=== PATIENT | male | born 1970 | race Caucasian/White ===

== ENCOUNTER 2018-06-08 04:38 | Emergency (ER) | payer SELFPAY ==
[~2018-06-08] VITALS: Ht 180.3 cm; Wt 104.3 kg
--- NOTE | 2018-06-08 04:43 | NUR ---
Note undone in EDM - 06/08/18 at 0517 by DORON BIBSELF C/O NONRADIATING MID ABD PAIN X 1 YR, WORSE TONIGHT WITH NV. Pt came to emergency dept. complaining of abd pain x 1 yr, that got worse tonight. +nausea, +vomitting, -diarrhea. Pt states he has a Hx of gallstones. Pt AAXO4. Respirations even and unlabored. Pt put on the monitor and pulse ox. Pending eval from ABHINAV GRIMALDO.
--- NOTE | 2018-06-08 04:43 | NUR ---
Pt came to emergency dept. complaining of abd pain x 1 yr, that got worse tonight. +nausea, +vomitting, -diarrhea. Pt states he has a Hx of gallstones. Pt AAXO4. Respirations even and unlabored. Pt put on the monitor and pulse ox. Pending eval from ER .
[2018-06-08] MEDS ORDERED: METOCLOPRAMIDE HCL 10 MG/2 ML VIAL ONE (04:47)
[2018-06-08] MEDS ORDERED: ONDANSETRON HCL/PF 4 MG/2 ML VIAL ONE (04:47)
[2018-06-08] MEDS ORDERED: KETOROLAC TROMETHAMINE INJ 30 MG/ML VIAL ONE (04:47)
[2018-06-08] MEDS ORDERED: PANTOPRAZOLE 40 MG VIAL ONE (04:47)
[2018-06-08] MEDS ORDERED: PANTOPRAZOLE 40 MG VIAL IV ONE (05:00)
[2018-06-08] MEDS ORDERED: ONDANSETRON HCL/PF 4 MG/2 ML VIAL IVP ONE (05:00)
[2018-06-08] MEDS ORDERED: METOCLOPRAMIDE HCL 10 MG/2 ML VIAL IV ONE (05:00)
[2018-06-08] MEDS ORDERED: KETOROLAC TROMETHAMINE INJ 30 MG/ML VIAL IV ONE (05:00)
[2018-06-08 05:03] LABS: BASOPHILS # (AUTO) 0.1 /CMM (0.0-0.2); BASOPHILS % (AUTO) 0.8 % (0.0-2.0); EOSINOPHILS % (AUTO) 1.5 % (0.0-6.0); HEMATOCRIT 47 % (39-51); HEMOGLOBIN 15.7 g/dL (13.5-17.5); LYMPHOCYTES # (AUTO) 2.1 /CMM (0.8-4.8); LYMPHOCYTES % (AUTO) 23.7 % (20.0-44.0); MEAN CORPUSCULAR HGB CONC 34 g/dl (31.0-36.0); MEAN CORPUSCULAR VOLUME 85 fL (80-96); MONOCYTES # (AUTO) 0.9 /CMM (0.1-1.30); MONOCYTES % (AUTO) 10.2 % (2.0-12.0); NEUTROPHILS # (AUTO) 5.6 /CMM (1.8-8.9); NEUTROPHILS % (AUTO) 63.8 % (43.0-81.0); PLATELET COUNT (AUTO) 294 /CMM (150-450); RED BLOOD CELL COUNT(AUTO) 5.47 MIL/uL (4.5-6.0); WHITE BLOOD COUNT (AUTO) 8.7 K/uL (4.3-11.0)
--- NOTE | 2018-06-08 05:08 | NUR ---
PT TAKEN TO CT.
[2018-06-08 05:13] LABS: CALCIUM, SERUM 9.1 mg/dL (8.5-10.1); POTASSIUM 4.1 mmol/L (3.5-5.1)
[2018-06-08 05:18] LABS: ALBUMIN 3.7 g/dL (3.4-5.0); BILIRUBIN,DIRECT 0.1 mg/dL (0.0-0.2); BILIRUBIN,TOTAL 0.3 mg/dL (0.2-1.0); TOTAL PROTEIN, SERUM 7.6 g/dL (6.4-8.2)
--- NOTE | 2018-06-08 05:24 | NUR ---
Pt returned from CT.
--- NOTE | 2018-06-08 05:48 | NUR ---
Patient is resting comfortably in bed with eyes closed. Easily aroused. VSS. NAD NOTED.
--- NOTE | 2018-06-08 05:55 | NUR ---
Patient discharged to home in stable condition. Written and verbal after care instructions given. Patient verbalizes understanding of instruction. IV removed. Catheter intact and site benign. Pressure and 4x4 applied to site. No bleeding noted. Pt ambulatory with steady gait.
[2018-06-08 05:56] VITALS: BP 119/70
== END 2018-06-08 05:57 | disposition home or self-care (01) ==
LOC: ER 04:40
DX: K80.50 Calculus of bile duct without cholangitis or cholecystitis without obstruction (principal)
CPT/HCPCS: 36415; 71045; 74176; 80048; 80076; 85025; 96374; 96375; 99284; A4606; C9113; J1885; J2405; J2765; Z7610